=== PATIENT | female | born 1980 | race Caucasian/White ===

== ENCOUNTER 2021-05-29 17:53 | Emergency (ER) | payer OTHER ==
[~2021-05-29] VITALS: Ht 165.1 cm; Wt 59.0 kg
[2021-05-29 18:10] VITALS: BP 117/83
[2021-05-29] MEDS ORDERED: FLUORESCEIN 1MG EYE STRIP. OD ONE (18:30)
[2021-05-29] MEDS ORDERED: TETRACAINE 0.5% OPHTH SOLUTION 4ML BOTTLE. OD ONE (18:30)
--- NOTE | 2021-05-29 18:50 | PHYS DOC ---
Past History Past Surgical History: No Surgical History (ROGE GOMEZ APRN) Alcohol Use: None (ROGE GOMEZ APRN) Adult General Chief Complaint Chief Complaint: EYE PROBLEMS HPI HPI Patient is a 40-year-old female presents emergency department with chief complaint of right eye blurriness after her accidentally stuck her finger in the patient's right eye. Patient denies blindness, states things look a little hazy, reports a lot of tearing, states she is worried it might get infected. Denies any other physical complaints or physical injury, reports her last tetanus immunization this past Sunday. Patient reports she is 28 weeks 4 days . Can feel the baby move, denies any problems with her today. Denies vaginal discharge, denies vaginal bleeding. Patient reports she is 11 para 4, 3 spontaneous abortions in first trimester, 3 spontaneous abortions and second trimester. Patient denies any other physical concerns or physical complaints. (ROGE GOMEZ APRN) Review of Systems Review of Systems 14 body systems of review of systems have been reviewed. See HPI for pertinent positives and negative responses, otherwise all other systems are negative, nonpertinent or noncontributory. Constitutional: Negative except as outlined in HPI above. Skin: Negative except as outlined in HPI above. Eyes: Negative except as outlined in HPI above. HENT: Negative except as outlined in HPI above. Respiratory: Negative except as outlined in HPI above. Cardiovascular: Negative except as outlined in HPI above. GI: Negative except as outlined in HPI above. : Negative except as outlined in HPI above. Musculoskeletal: Negative except as outlined in HPI above. Integument: Negative except as outlined in HPI above. Neurologic: Negative except as outlined in HPI above. Endocrine: Negative except as outlined in HPI above. Lymphatic: Negative except as outlined in HPI above. Psychiatric: Negative except as outlined in HPI above. (ROGE GOMEZ APRN) Current Medications Current Medications Current Medications Medications (Trade) Dose Ordered Sig/Lupe Start Time Stop Time Status Last Admin Dose Admin Fluorescein Sodium (Ful-Florinda 1mg) 1 strip 1X ONCE 05/29/21 18:30 05/29/21 18:31 DC Tetracaine HCl (Tetracaine) 1 drop 1X ONCE 05/29/21 18:30 05/29/21 18:31 DC (ROGE GOMEZ APRN) Allergies Allergies Allergies Coded Allergies Type Severity Reaction Last Updated Verified No Known Drug Allergies 05/29/21 No (ROGE GOMEZ APRN) Physical Exam Physical Exam Constitutional: Well developed, well nourished, no acute distress, non-toxic appearance. 40-year-old female in no apparent distress. HENT: Normocephalic, atraumatic. Eyes: Conjunctiva normal, no discharge. Satisfactory 6 cardinal eye movements, fluorescein eye strip exam with Chen lamp reveals corneal abrasion at 5 o'clock position of iris. Globe is intact, no conjunctivitis appreciated, no tearing, patient reports she can see clearly now that her eye pain has been relieved with tetracaine eyedrops. Pending visual acuity at this time. Neck: Normal range of motion, no stridor. Cardiovascular: No cyanosis appreciated, distal cap refill less than 2 seconds. Lungs & Thorax: Patient is in no respiratory distress, no audible adventitious lung sounds appreciated. Abdomen: Nontender, no abnormalities noted. Skin: Warm, dry, no erythema, no rash. Back: No tenderness, no deformities. Extremities: No tenderness, no cyanosis, no clubbing, ROM intact, no edema. Neurologic: Alert and oriented X 3, normal motor function, normal sensory function, no focal deficits noted. Psychologic: Affect normal, judgement normal, mood normal. (ROGE GOMEZ APRN) Current Patient Data Vital Signs Vital Signs Date Time Temp Pulse Resp B/P (MAP) Pulse Ox O2 Delivery O2 Flow Rate FiO2 05/29/21 18:10 98.0 94 16 117/83 97 Room Air (ROGE GOMEZ APRN) EKG EKG [] (ROGE GOMEZ APRN) Radiology/Procedures Radiology/Procedures [] (ROGE GOMEZ APRN) Heart Score C/O Chest Pain: No Risk Factors: Risk Factors: DM, Current or recent (<one month) smoker, HTN, HLP, family history of CAD, obesity. Risk Scores: Risk Factors: DM, Current or recent (<one month) smoker, HTN, HLP, family history of CAD, obesity. (ROGE GOMEZ APRN) Course & Med Decision Making Course & Med Decision Making Pertinent Labs and Imaging studies reviewed. (See chart for details) 40-year-old female, vital signs reviewed, presents emergency department concerning right eye discomfort after her daughter poked her in the eye with the finger just prior to arrival. A Chen lamp examination revealed corneal abrasion at 5 o'clock position of virus. Pending visual acuity and heart tones at this time. Visual acuity as follows: OS 20/20, OD 20/70, OU 20/30 using Gisella visual acuity chart heart tones equal 158 Discussed eye ointment 4 times a day x5 days, strict follow-up with primary care this week, follow-up with ophthalmology for ongoing problems, patient gave verbal understanding of eye ointment medication, side effects, is amenable to ED discharge planning. Discussed with the patient all findings and diagnostic testing as well as the need to follow-up with their primary care provider for further evaluation and treatment or return to the ED if any new or worsening symptoms. Strict return precautions were also discussed at length, the patient voiced understanding and agreement with the discharge planning. The patient was nontoxic in appearance, in no apparent distress, and hemodynamically stable at the time of disposition. (ROGE GOMEZ APRN) Course & Med Decision Making Did not see or evaluate patient. Did not discuss patient with PLASTIC BOAT BUFFER. Agree with PLASTIC BOAT BUFFER's work-up and disposition per note. (MALIKA MCQUEEN MD) Dragon Disclaimer Dragon Disclaimer This electronic medical record was generated, in whole or in part, using a voice recognition dictation system. (ROGE GOMEZ APRN) Departure Departure: Impression: Primary Impression: Corneal abrasion, right Disposition: HOME / SELF CARE / HOMELESS Condition: GOOD Referrals: AAMIR MENA-OFELIA (PCP) ISABELLA VELAZCO DO Patient Instructions: Eye - Corneal Abrasion Additional Instructions: You were seen here in the emergency department for an injury to your right eye. The examination revealed a corneal abrasion which is a scratch to the surface of your eye. This should heal very quickly however related to the explanation of events, I am placing you on an antibiotic to prevent any eye infection. As we discussed at length, please place 1/2 inch ribbon to your lower eyelid on the right 4 times a day for the next 5 days. Please follow-up with your primary care physician for ongoing treatment and keep your OB appointments as they come, follow-up with an hot head machine operator for ongoing eye problems. I have provided you with a hot head machine operator above however you may choose any hot head machine operator you wish to see. Thank you for visiting our Emergency Department. It was a pleasure taking care of you today in the emergency department and we appreciate you trusting us with your care. If any additional problems come up don't hesitate to return to visit us. Please follow up with your primary care provider so they can plan additional care if needed and know about the problem that you had. If symptoms worsen come back to the Emergency Department. Any concerning symptoms that start such as chest pain, shortness of air, weakness or numbness on one side of the body, running high fevers or any other concerning symptoms return to the ER. Scripts Erythromycin Base (Erythromycin) 1 Gm Oint...g. 1 GM OD QID for corneal abrasion, #[address] 1/2 inch ribbon 4 times a day to the inner lower right eyelid for the next 5 days. Prov: ROGE GOMEZ APRN 05/29/21 Problem Qualifiers Primary Impression: Corneal abrasion, right Encounter type: initial encounter Qualified Codes: S05.01XA - Injury of conjunctiva and corneal abrasion without foreign body, right eye, initial encounter ROGE GOMEZ APRN May 29, 2021 18:50 MALIKA MCQUEEN MD May 29, 2021 20:21
[2021-05-29] MEDS ORDERED: ERYTHROMYCIN 0.5% OPHTH OINTMENT 1GM TUBE. OD ONE (19:00)
[2021-05-29] MEDS ORDERED: ERYT1OIN3 OD (19:08)
== END 2021-05-29 19:35 | disposition home or self-care (01) ==
LOC: ER 17:53
DX: O9A.213 Injury, poisoning and certain other consequences of external causes complicating pregnancy, third trimester (principal); S05.01XA Injury of conjunctiva and corneal abrasion without foreign body, right eye, initial encounter; Z3A.28 28 weeks gestation of pregnancy; W50.0XXA Accidental hit or strike by another person, initial encounter; Y93.89 Activity, other specified; Y92.89 Other specified places as the place of occurrence of the external cause; Y99.8 Other external cause status
CPT/HCPCS: 99284